=== PATIENT | female | born 1970 | race Caucasian/White ===

== ENCOUNTER → 2017-10-14 | Outpatient (CLI) | payer BC ==
[~2017-10-14] MED LIST: CETI10CA8 PO; ESTRADIOL; LEVO50TA86 PO; NAPR500T31 PO; OMEP-218 PO; ONDA4TAB PO; PROG200C PO; SERT-173 PO
== END ==
LOC: LAB 07:35
PROVIDERS: ATTEND Nurse Practitioner Psychiatric/Mental Health
DX: E03.9 Hypothyroidism, unspecified (principal); R51 Headache
CPT/HCPCS: 36415; 82040; 82247; 82310; 82374; 82435; 82565; 82947; 83540; 84075; 84132; 84155; 84295; 84439; 84443; 84450; 84460; 84480; 84520